=== PATIENT | male | born 1965 | race Caucasian/White ===

== ENCOUNTER 2016-06-12 14:08 | Emergency (ER) | payer OTHER ==
--- NOTE | 2016-06-12 15:30 | REP ---
Clinical: Cough . Comparison: 01/30/2014 . Technique: PA and lateral. Findings: The mediastinum and cardiac silhouette are normal. The lung rob are clear and without acute consolidation, effusion, or pneumothorax. The skeletal structures are intact and normal. Impression: 1. No acute cardiopulmonary process. Signed by Ren Serrano MD 06/12/2016 03:21 P
[2016-06-12] MEDS ORDERED: TUSSICAPS ER 10/8MG CAPSULE As Ordered ONE (15:35)
[2016-06-12] MEDS ORDERED: methylPREDNISolone INJ 125 MG/2 ML VIAL (J2930) As Ordered ONE (15:35)
[2016-06-12] MEDS ORDERED: IPRATROPIUM 0.5MG/ALBUTEROL 2.5MG INH SOL UD 3ML (DUONEB)(J7620) As Ordered ONE (15:36)
[2016-06-12 15:47] LABS: BASO % 0.7 % (0.0-1.0); EOS # 0.1 K/mm3 (0.0-0.50); EOS % 2.2 % (0.0-3.0); LARGE UNSTAINED CELL # 0.2 K/mm3 (0.0-0.4); LYMPH # 1.8 K/mm3 (1.5-4.5); MEAN CORPUSCULAR HEMOGLOBIN 30.9 pg (27.0-33.0); MEAN CORPUSCULAR HGB CONC 35.2 g/dl (32.0-36.5); MEAN CORPUSCULAR VOLUME 87.8 fl (80.0-96.0); MONO # 0.3 K/mm3 (0.0-0.8); MONO % 7.8 % (0.0-5.0); NEUTROPHILS # 1.6 K/mm3 (1.8-7.7); NEUTROPHILS % 40.3 % (36.0-66.0); PLATELET COUNT, AUTOMATED 213 k/mm3 (150-450); RED CELL DISTRIBUTION WIDTH 11.9 % (11.5-14.5)
[2016-06-12 15:48] LABS: VENOUS BASE EXCESS 2.6 (-2.0-2.0); VENOUS O2 SATURATION 56.1 % (60.0-80.0); VENOUS PARTIAL PRESSURE CO2 48.3 mmHg (38.0-50.0); VENOUS PARTIAL PRESSURE O2 28.4 mmHg (30.0-50.0); VENOUS STANDARD HCO3 25.6 MEQ/L
[2016-06-12 16:22] LABS: ANION GAP 7 MEQ/L (8-16); BLOOD UREA NITROGEN 9 MG/DL (7-18); CALCIUM LEVEL 9.3 MG/DL (8.5-10.1); CARBON DIOXIDE LEVEL 31 MEQ/L (21-32); CHLORIDE LEVEL 98 MEQ/L (98-107); GLOMERULAR FILTRATION RATE > 60.0 (>56); GLUCOSE, FASTING 116 MG/DL (70-105); POTASSIUM SERUM 4.6 MEQ/L (3.5-5.1); SODIUM LEVEL 136 MEQ/L (136-145)
--- NOTE | 2016-06-12 16:56 | EDDOCDS ---
Physician Documentation [facility] Name: Manuel Parham Age: 50 yrs Sex: Male : 1965 Arrival Date: 06/12/2016 Time: 14:08 Bed 7 Private MD: Jean Haile D Disposition: 06/12 16:51 Critical Care: Critical care not applicable. le Disposition: 06/12/16 16:46 Discharged to Home/Self Care. Impression: Acute bronchitis. - Condition is Stable. - Discharge Instructions: Acute Bronchitis. - Prescriptions for Prednisone 20 mg Oral Tablet - take 3 tablet by ORAL route once daily for 5 days; 15 tablet. Tussionex Pennkinetic ER 8- 10 mg/5 mL Oral Suspension, Sust. Release 12 hr - take 5 milliliter by ORAL route every 12 hours As needed; 120 milliliter. - Medication Reconciliation, Local Pharmacy Hours form. - Follow up: Jean Haile; When: Call to arrange an appointment; Reason: Recheck today's complaints, Continuance of care. - Problem is an ongoing problem. - Symptoms have improved. - Notes: Keep hydrated Return to the ED for worsening symptoms Historical: - Allergies: No known drug Allergies; - Home Meds: 1. cefuroxime axetil 500 mg Oral tab 1 tab every 12 hours (Last dose: 06/11/2016) 2. Theraflu Daytime Cold-Cough 10-20-650 mg oral pwpk every 4 hours as needed (Last dose: 06/12/2016 08:00) 3. omeprazole 20 mg Oral cpDR 1 cap once daily (Last dose: 06/12/2016 08:00) 4. metformin 500 mg Oral Tb24 1 tab once daily has not taken in over 1 month 5. nicotine 21 mg/24 hr TD pt24 1 patch once daily (Last dose: 06/12/2016 14:32) - PMHx: Diabetes - NIDDM: controlled; GERD; Hypercholesterolemia; Sleep Apnea w/ CPAP; - PSHx: rt arm surgery; rt ankle surgery; Hernia repair; - Social history: Smoking status: Patient uses tobacco products, heavy tobacco smoker. No barriers to communication noted, The patient speaks fluent [place]. - Family history: Not pertinent. - : The pt / caregiver states he / she is not on anticoagulants. Home medication list is obtained from the patient. - Exposure Risk Screening:: None identified. Vital Signs: 14:10 BP 189 / 105; Pulse 75; Resp 16; Temp 96.8(O); Pulse Ox 98% on R/A; Weight 86.18 kg / lr2 189.99 lbs (R); Height 5 ft. 8 in. (172.72 cm) (R); Pain 9/10; 15:06 BP 154 / 90 LA Sitting (man/); jo3 15:46 BP 140 / 72 (auto/); dsf 15:48 Pulse 76 MON; Pulse Ox 92% ; dsf 16:01 BP 138 / 76 (auto/); dsf 16:01 Pulse 74 MON; Pulse Ox 95% ; dsf 16:16 BP 140 / 76 (auto/); dsf 16:16 Pulse 74 MON; Pulse Ox 93% ; dsf 16:31 BP 144 / 83 (auto/); dsf 16:31 Pulse 74 MON; Pulse Ox 94% ; dsf 16:46 BP 161 / 82 (auto/); dsf 16:46 Pulse 82 MON; Resp 20; Pulse Ox 95% ; Pain 0/10; dsf 14:10 Body Mass Index 28.89 (86.18 kg, 172.72 cm) lr2 MDM: 14:36 Recheck B/P ordered. dt4 14:36 ECG WITH READING ER PHYS+CARDIAG ordered. EDMS 14:59 Chest, 2 View (pa\E\lat) Ordered. EDMS 15:27 Solu-MEDROL 125 mg IVP once ordered. le 15:27 -Blood Culture (Adults Only), peripheral from different site, or from device/port/PICC le etc. if present ordered. 15:27 Staffing Branch Manager/Pulse Ox/q 15 min VS ordered. le 15:27 IV Saline Lock ordered. le 15:27 Rhythm Strip to chart ordered. le 15:27 Albuterol-Ipratropium 3 ml Inhalation once ordered. le 15:27 Call Respiratory ordered. le 15:27 Chlorpheniramine-Hydrocodone Extended Release 12 hour Capsule 8 mg-10 mg 1 caps PO once le ordered. 15:28 Basic Metabolic Profile Ordered. EDMS 15:28 CBC with Diff Ordered. EDMS 15:28 Cardiac Injury Profile Ordered. EDMS 15:28 Troponin Ordered. EDMS 15:28 -Blood Culture Ordered. EDMS 15:31 Call Respiratory complete. deg 15:31 -Blood Culture (Adults Only), peripheral from different site, or from device/port/PICC deg etc. if present complete. 15:32 Venous Blood Gas (large pea green tube on ice) Ordered. EDMS 15:33 BLOOD CULTURES Ordered. EDMS 15:53 Albuterol-Ipratropium 3 ml Inhalation once ordered. ac1 16:11 CBC with Diff Reviewed. le 16:11 Venous Blood Gas (large pea green tube on ice) Reviewed. le 16:11 Chest, 2 View (pa\E\lat) Reviewed. le 16:11 Financial registration complete. kf3 16:16 [facility] Payment Agreement was scanned into [employer] and attached to record. kf3 16:44 Basic Metabolic Profile Reviewed. le 16:44 Cardiac Injury Profile Reviewed. le 16:44 Troponin Reviewed. le Administered Medications: 15:25 Drug: Albuterol-Ipratropium 3 ml [ipratropium-albuterol 0.5 mg-3 mg(2.5 mg base)/3 mL ac1 nebulization soln (3 mL)] Route: Inhalation; 15:30 Follow up: SURYA THOMAS BEFORE AND AFTER TX. ac1 15:40 Drug: Solu-MEDROL 125 mg [Solu-Medrol 500 mg intravenous solution (125 mg)] Route: IVP; dsf Site: right antecubital; 15:40 Drug: Chlorpheniramine-Hydrocodone 1 caps [hydrocodone ER 10 mg-chlorpheniramine 8 mg dsf 12hr capsule,extend.release (1 caps)] Route: PO; Signatures: Dispatcher [employer] EDMS Indy Magana, Justice Court Judge Unit deg Mimi Gonzalez, RN RN Vilma Almeida,RT RT ac1 Mercedez Ramírez, LAND INSPECTOR LAND INSPECTOR le Vadim Byrd, Reg Reg kf3 Zeynep Scott,RN RN dsf Yeni Barker, DC IRWIN dt4 The chart was reviewed and I authenticate all verbal orders and agree with the evaluation and treatment provided.Attachments: 16:16 [facility] Payment Agreement kf3 MTDD
--- NOTE | 2016-06-12 16:56 | EDDOCDS ---
Nurse's Notes [facility] Name: Manuel Parham Age: 50 yrs Sex: Male : 1965 Arrival Date: 06/12/2016 Time: 14:08 Bed 7 Private MD: Jean Haile D Diagnosis: Acute bronchitis Presentation: 06/12 14:25 Presenting complaint: Patient states: Sent from [facility] cough x 1 week CXR r/o pneumonia, kpj also having chest pain and tingling left arm. Adult Sepsis Screening: The patient does not have new or worsening altered mentation. Patient's respiratory rate is less than 22. Systolic blood pressure is greater than 100. Patient has a qSOFA score of 0- Negative Sepsis Screen. Suicide/Homicide risk assessment- the patient denies having any suicidal and/or homicidal ideations and does not present with any other emotional, behavioral or mental health complaints. Status: Patient is not a environmental services supervisor or dependent. Transition of care: Patient was received from [facility]. 14:25 Acuity: [facility] 14:25 Method Of Arrival: [facility] Triage Assessment: 14:32 General: Appears uncomfortable, well nourished, well groomed, Behavior is anxious, kpj appropriate for age. Pain: Location: chest, body aches, left arm Pain currently is 8 out of 10 on a pain scale. Pt Declines HIV testing. Neurological: Level of Consciousness is awake, alert, Oriented to person, place, time. Respiratory: Onset: The symptoms/episode began/occurred 1 week ago, Reports shortness of breath cough that is non-productive, pain with cough. Derm: Skin is pink, warm & dry. Historical: - Allergies: No known drug Allergies; - Home Meds: 1. cefuroxime axetil 500 mg Oral tab 1 tab every 12 hours (Last dose: 06/11/2016) 2. Theraflu Daytime Cold-Cough 10-20-650 mg oral pwpk every 4 hours as needed (Last dose: 06/12/2016 08:00) 3. omeprazole 20 mg Oral cpDR 1 cap once daily (Last dose: 06/12/2016 08:00) 4. metformin 500 mg Oral Tb24 1 tab once daily has not taken in over 1 month 5. nicotine 21 mg/24 hr TD pt24 1 patch once daily (Last dose: 06/12/2016 14:32) - PMHx: Diabetes - NIDDM: controlled; GERD; Hypercholesterolemia; Sleep Apnea w/ CPAP; - PSHx: rt arm surgery; rt ankle surgery; Hernia repair; - Social history: Smoking status: Patient uses tobacco products, heavy tobacco smoker. No barriers to communication noted, The patient speaks fluent [place]ian. - Family history: Not pertinent. - : The pt / caregiver states he / she is not on anticoagulants. Home medication list is obtained from the patient. - Exposure Risk Screening:: None identified. Screenin:54 Screening information is obtained from the patient. Fall risk: No risks identified. dsf Assistance ADL's: requires no assistance with activities of daily living. Abuse/DV Screen: The patient / caregiver reports he/she is: not in a situation that causes fear, pain or injury. Nutritional screening: No deficits noted. Advance Directives: Currently, there is no health care proxy. home support is adequate. Assessment: 15:06 General: Appears in no apparent distress, Behavior is appropriate for age, cooperative. jo3 General: Taken to CT at this time . Neurological: Level of Consciousness is awake, alert, Oriented to person, place, time. Respiratory: Airway is patent Respiratory effort is even, unlabored. Derm: Skin is pink, warm & dry. 15:49 General: Appears in no apparent distress, Behavior is appropriate for age, cooperative, jo3 pleasant. Neurological: Level of Consciousness is awake, alert, Oriented to person, place, time. Respiratory: Airway is patent Respiratory effort is even, unlabored, Breath sounds are clear bilaterally. Derm: Skin is pink, warm & dry. 16:53 General: Appears in no apparent distress, Behavior is appropriate for age, cooperative. dsf Pain: Denies pain. Neurological: Level of Consciousness is awake, alert. Cardiovascular: Capillary refill < 3 seconds. Respiratory: Airway is patent Respiratory effort is even, unlabored, Respiratory pattern is regular, symmetrical. Derm: Skin is pink, warm & dry. Vital Signs: 14:10 BP 189 / 105; Pulse 75; Resp 16; Temp 96.8(O); Pulse Ox 98% on R/A; Weight 86.18 kg lr2 (R); Height 5 ft. 8 in. (172.72 cm) (R); Pain 9/10; 15:06 BP 154 / 90 LA Sitting (man/); jo3 15:46 BP 140 / 72 (auto/); dsf 15:48 Pulse 76 MON; Pulse Ox 92% ; dsf 16:01 BP 138 / 76 (auto/); dsf 16:01 Pulse 74 MON; Pulse Ox 95% ; dsf 16:16 BP 140 / 76 (auto/); dsf 16:16 Pulse 74 MON; Pulse Ox 93% ; dsf 16:31 BP 144 / 83 (auto/); dsf 16:31 Pulse 74 MON; Pulse Ox 94% ; dsf 16:46 BP 161 / 82 (auto/); dsf 16:46 Pulse 82 MON; Resp 20; Pulse Ox 95% ; Pain 0/10; dsf 14:10 Body Mass Index 28.89 (86.18 kg, 172.72 cm) lr2 Vitals: 14:10 Log In Time: June 12, 2016 at 14:08. lr2 ED Course: 14:10 Patient visited by Yessica Huber. lr2 14:10 Patient moved to Waiting lr2 14:13 Jean Haile is Private Physician. lr2 14:13 Patient moved to Pre RCE lr2 14:27 Triage Initiated kpj 14:35 Patient moved to Triage 3 kp 14:46 EKG done. (by ED staff). Reviewed by Mercedez TAYLOR. rs6 14:47 Patient moved to 7 srm 14:49 Mercedez Ramírez FNP is PHCP. le 14:53 Patient visited by Michelle Solis PCA. rs6 14:57 Patient visited by Mercedez Ramírez FNP. le 14:58 Patient visited by Mercedez Ramírez FNP. le 15:07 Patient visited by Abigail Cornelius RN. jo3 15:43 BLOOD CULTURES Sent. jo3 15:43 Venous Blood Gas (large pea green tube on ice) Sent. jo3 15:43 -Blood Culture Sent. jo3 15:43 Basic Metabolic Profile Sent. jo3 15:43 CBC with Diff Sent. jo3 15:44 Cardiac Injury Profile Sent. jo3 15:44 Troponin Sent. jo3 15:51 Chest, 2 View (pa\E\lat) Returned. EDMS 15:52 Patient visited by Abigail Cornelius,ARCHIE. jo3 16:16 [facility] Payment Agreement was scanned into [employer] and attached to record. kf3 16:46 Jean Haile is Referral Physician. le 16:53 Discontinued lock intact, bleeding controlled, pressure dressing applied, No dsf redness/swelling at site. No procedures done that require assistance. 16:54 The patient / caregiver is instructed regarding the plan of care and ED course. dsf Administered Medications: 15:25 Drug: Albuterol-Ipratropium 3 ml [ipratropium-albuterol 0.5 mg-3 mg(2.5 mg base)/3 mL ac1 nebulization soln (3 mL)] Route: Inhalation; 15:30 Follow up: SURYA THOMAS BEFORE AND AFTER TX. ac1 15:40 Drug: Solu-MEDROL 125 mg [Solu-Medrol 500 mg intravenous solution (125 mg)] Route: IVP; dsf Site: right antecubital; 15:40 Drug: Chlorpheniramine-Hydrocodone 1 caps [hydrocodone ER 10 mg-chlorpheniramine 8 mg dsf 12hr capsule,extend.release (1 caps)] Route: PO; Intake: RT: 15:25 Initial Med Neb Given as ordered. ac1 15:30 Respiratory: Breath sounds with wheezes bilaterally. at expiration. ac1 Order Results: Lab Order: Basic Metabolic Profile; SPEC'M 06/12/16 15:40 Test: GLUCOSE, FASTING; Value: 116; Range: 70-105; Abnormal: Above high normal; Units: MG/DL; Status: F Test: BLOOD UREA NITROGEN; Value: 9; Range: 7-18; Units: MG/DL; Status: F Test: CREATININE FOR GFR; Value: 1.00; Range: 0.70-1.30; Units: MG/DL; Status: F Test: GLOMERULAR FILTRATION RATE; Value: > 60.0; Range: >56; Status: F Test: SODIUM LEVEL; Value: 136; Range: 136-145; Units: MEQ/L; Status: F Test: POTASSIUM SERUM; Value: 4.6; Range: 3.5-5.1; Units: MEQ/L; Status: F Test: CHLORIDE LEVEL; Value: 98; Range: 98-107; Units: MEQ/L; Status: F Test: CARBON DIOXIDE LEVEL; Value: 31; Range: 21-32; Units: MEQ/L; Status: F Test: ANION GAP; Value: 7; Range: 8-16; Abnormal: Below low normal; Units: MEQ/L; Status: F Test: CALCIUM LEVEL; Value: 9.3; Range: 8.5-10.1; Units: MG/DL; Status: F Test Note: ; Units are mL/min/1.73 m2 Chronic Kidney Disease Staging per NKF: Stage I & II GFR >=60 Normal to Mildly Decreased Stage III GFR 30-59 Moderately Decreased Stage IV GFR 15-29 Severely Decreased Stage V GFR <15 Very Little GFR Left ESRD GFR <15 on STUNT MAN Lab Order: CBC with Diff; SPEC'M 06/12/16 15:40 Test: WHITE BLOOD COUNT; Value: 4.0; Range: 4.0-10.0; Units: K/mm3; Status: F Test: RED BLOOD COUNT; Value: 4.96; Range: 4.30-6.10; Units: M/mm3; Status: F Test: HEMOGLOBIN; Value: 15.3; Range: 14.0-18.0; Units: g/dl; Status: F Test: HEMATOCRIT; Value: 43.6; Range: 42.0-52.0; Units: %; Status: F Test: MEAN CORPUSCULAR VOLUME; Value: 87.8; Range: 80.0-96.0; Units: fl; Status: F Test: MEAN CORPUSCULAR HEMOGLOBIN; Value: 30.9; Range: 27.0-33.0; Units: pg; Status: F Test: MEAN CORPUSCULAR HGB CONC; Value: 35.2; Range: 32.0-36.5; Units: g/dl; Status: F Test: RED CELL DISTRIBUTION WIDTH; Value: 11.9; Range: 11.5-14.5; Units: %; Status: F Test: PLATELET COUNT, AUTOMATED; Value: 213; Range: 150-450; Units: k/mm3; Status: F Test: NEUTROPHILS %; Value: 40.3; Range: 36.0-66.0; Units: %; Status: F Test: LYMPH %; Value: 44.0; Range: 24.0-44.0; Units: %; Status: F Test: MONO %; Value: 7.8; Range: 0.0-5.0; Abnormal: Above high normal; Units: %; Status: F Test: EOS %; Value: 2.2; Range: 0.0-3.0; Units: %; Status: F Test: BASO %; Value: 0.7; Range: 0.0-1.0; Units: %; Status: F Test: LARGE UNSTAINED CELL %; Value: 5.0; Range: 0.0-4.0; Abnormal: Above high normal; Units: %; Status: F Test: NEUTROPHILS #; Value: 1.6; Range: 1.8-7.7; Abnormal: Below low normal; Units: K/mm3; Status: F Test: LYMPH #; Value: 1.8; Range: 1.5-4.5; Units: K/mm3; Status: F Test: MONO #; Value: 0.3; Range: 0.0-0.8; Units: K/mm3; Status: F Test: EOS #; Value: 0.1; Range: 0.0-0.50; Units: K/mm3; Status: F Test: BASO #; Value: 0.0; Range: 0.0-0.2; Units: K/mm3; Status: F Test: LARGE UNSTAINED CELL #; Value: 0.2; Range: 0.0-0.4; Units: K/mm3; Status: F Lab Order: Cardiac Injury Profile; SPEC' 06/12/16 15:40 Test: CPK CREATINE PHOSPHOKINASE; Value: 123; Range: 39-308; Units: U/L; Status: F Test: CK-MB VALUE MASS; Value: 1.0; Range: 0.0-3.6; Units: NG/ML; Status: F Test: MB/CK RELATIVE INDEX; Value: 0.81; Range: < OR =4; Status: F Test Note: ; DIAGNOSIS CRITERIA MMB ng/ml Relative Index (RI) NON-AMI < or = 5 N/A [place] > 5 < or = 4 AMI > 5 > 4 Lab Order: Troponin; SPEC'M 06/12/16 15:40 Test: TROPONIN I; Value: < 0.02; Range: < 0.10; Units: NG/ML; Status: F Test Note: ; Troponin I Reference Interval for [employer] LOCI: 99th Percentile= 0.00-0.045 ng/ml Risk Stratification: <= 0.10 ng/ml Decreased Risk for Adverse Clinical Events. 0.10-1.50 ng/ml Increased Risk for Adverse Clinical Events. Evaluation of additional criterion and/or repeat testing in 2-6 hours is suggested to rule out myocardial damage. >= 1.50 ng/ml Indicative of Myocardial Injury. Lab Order: Venous Blood Gas (large pea green tube on ice); SPEC'M 06/12/16 15:40 Test: VENOUS PH; Value: 7.389; Range: 7.330-7.430; Units: UNITS; Status: F Test: VENOUS PARTIAL PRESSURE CO2; Value: 48.3; Range: 38.0-50.0; Units: mmHg; Status: F Test: VENOUS PARTIAL PRESSURE O2; Value: 28.4; Range: 30.0-50.0; Abnormal: Below low normal; Units: mmHg; Status: F Test: VENOUS TOTAL CO2; Value: 30.0; Range: 24.0-28.0; Abnormal: Above high normal; Units: MEQ/L; Status: F Test: VENOUS HCO3; Value: 28.5; Range: 23.0-27.0; Abnormal: Above high normal; Units: MEQ/L; Status: F Test: VENOUS BASE EXCESS; Value: 2.6; Range: -2.0-2.0; Abnormal: Above high normal; Status: F Test: VENOUS STANDARD HCO3; Value: 25.6; Units: MEQ/L; Status: F Test: VENOUS O2 SATURATION; Value: 56.1; Range: 60.0-80.0; Abnormal: Below low normal; Units: %; Status: F Radiology Order: Chest, 2 View (pa\E\lat) Test: Chest, 2 View (pa\E\lat) REASON FOR EXAMINATION: Cough; Clinical: Cough .; ; Comparison: 01/30/2014 .; ; Technique: PA and lateral.; ; Findings:; The mediastinum and cardiac silhouette are normal. The lung rob are clear and; without acute consolidation, effusion, or pneumothorax. The skeletal structures; are intact and normal.; ; Impression:; 1. No acute cardiopulmonary process.; ; ; Signed by; Ren Serrano MD 06/12/2016 03:21 P; Outcome: 16:46 Discharge ordered by Provider. le 16:54 Discharge Assessment: Patient awake, alert and oriented x 3. No cognitive and/or dsf functional deficits noted. Patient verbalized understanding of disposition instructions. patient administered narcotics - no. The following High Risk Discharge criteria are identified: None. Discharged to home ambulatory. Condition: stable. Discharge instructions given to patient, Instructed on discharge instructions, follow up and referral plans. medication usage, Demonstrated understanding of instructions, medications, Pt was receptive of discharge instructions/ teaching. Prescriptions given X 2. No special radiology studies were completed. Property sent home with patient. 16:55 Patient left the ED. dsf Signatures: Dispatcher [employer] EDMS Mimi Gonzalez, RN RN Carolyn Soria, RN RN Vilma Messina,RT RT ac1 Abigail CorneliusRN RN jo3 Mercedez Ramírez, CHIMNEY SUPERVISOR BRICK CHIMNEY SUPERVISOR BRICK Vadim Wheat, Reg Reg kf3 Zeynep Scott RN RN dsf Michelle Solis, RN PLASTIC SURGERY RN PLASTIC SURGERY rs6 Yessica Huber lr2 Corrections: (The following items were deleted from the chart) 14:53 14:46 EKG done. (by ED staff). Reviewed by Yeni Barker PA-C rs6 rs6 15:40 15:40 Solu-MEDROL 125 mg IVP in left antecubital dsf dsf 15:53 15:53 Albuterol-Ipratropium 3 ml Inhalation ac1 ac1 MTDD
--- NOTE | 2016-06-13 15:15 | ECGEPIP ---
Stationary ECG Study [facility] - ED Test Date: 2016-06-12 Pat Name: ANDRESSA BUTTS Department: Room: - Gender: M Public Relations Representative: : 1965 Requested By: KELLY Dotson PA-C Order Number: [id number] Reading MD: Evon Renner Measurements Intervals [place] Rate: 67 P: 71 WV: 150 QRS: 37 QRSD: 98 T: 39 QT: 370 QTc: 393 Interpretive Statements SINUS RHYTHM NO PRIOR FOR COMPARISON Electronically Signed On 06-13-2016 15:15:20 EST by Evon Renner
--- NOTE | 2016-06-14 17:56 | EDDOCDS ---
Physician Documentation [facility] Name: Manuel Parham Age: 50 yrs Sex: Male : 1965 Arrival Date: 06/12/2016 Time: 14:08 Bed 7 Private MD: Jean Haile D Disposition: 06/12 16:51 Critical Care: Critical care not applicable. le Disposition: 06/12/16 16:46 Discharged to Home/Self Care. Impression: Acute bronchitis. - Condition is Stable. - Discharge Instructions: Acute Bronchitis. - Prescriptions for Prednisone 20 mg Oral Tablet - take 3 tablet by ORAL route once daily for 5 days; 15 tablet. Tussionex Pennkinetic ER 8- 10 mg/5 mL Oral Suspension, Sust. Release 12 hr - take 5 milliliter by ORAL route every 12 hours As needed; 120 milliliter. - Medication Reconciliation, Local Pharmacy Hours form. - Follow up: Jean Haile; When: Call to arrange an appointment; Reason: Recheck today's complaints, Continuance of care. - Problem is an ongoing problem. - Symptoms have improved. - Notes: Keep hydrated Return to the ED for worsening symptoms Historical: - Allergies: No known drug Allergies; - Home Meds: 1. cefuroxime axetil 500 mg Oral tab 1 tab every 12 hours (Last dose: 06/11/2016) 2. Theraflu Daytime Cold-Cough 10-20-650 mg oral pwpk every 4 hours as needed (Last dose: 06/12/2016 08:00) 3. omeprazole 20 mg Oral cpDR 1 cap once daily (Last dose: 06/12/2016 08:00) 4. metformin 500 mg Oral Tb24 1 tab once daily has not taken in over 1 month 5. nicotine 21 mg/24 hr TD pt24 1 patch once daily (Last dose: 06/12/2016 14:32) - PMHx: Diabetes - NIDDM: controlled; GERD; Hypercholesterolemia; Sleep Apnea w/ CPAP; - PSHx: rt arm surgery; rt ankle surgery; Hernia repair; - Social history: Smoking status: Patient uses tobacco products, heavy tobacco smoker. No barriers to communication noted, The patient speaks fluent Austrian. - Family history: Not pertinent. - : The pt / caregiver states he / she is not on anticoagulants. Home medication list is obtained from the patient. - Exposure Risk Screening:: None identified. Vital Signs: 14:10 BP 189 / 105; Pulse 75; Resp 16; Temp 96.8(O); Pulse Ox 98% on R/A; Weight 86.18 kg / lr2 189.99 lbs (R); Height 5 ft. 8 in. (172.72 cm) (R); Pain 9/10; 15:06 BP 154 / 90 LA Sitting (man/); jo3 15:46 BP 140 / 72 (auto/); dsf 15:48 Pulse 76 MON; Pulse Ox 92% ; dsf 16:01 BP 138 / 76 (auto/); dsf 16:01 Pulse 74 MON; Pulse Ox 95% ; dsf 16:16 BP 140 / 76 (auto/); dsf 16:16 Pulse 74 MON; Pulse Ox 93% ; dsf 16:31 BP 144 / 83 (auto/); dsf 16:31 Pulse 74 MON; Pulse Ox 94% ; dsf 16:46 BP 161 / 82 (auto/); dsf 16:46 Pulse 82 MON; Resp 20; Pulse Ox 95% ; Pain 0/10; dsf 14:10 Body Mass Index 28.89 (86.18 kg, 172.72 cm) lr2 MDM: 14:36 Recheck B/P ordered. dt4 14:36 ECG WITH READING ER PHYS+CARDIAG ordered. EDMS 14:59 Chest, 2 View (pa\E\lat) Ordered. EDMS 15:27 Solu-MEDROL 125 mg IVP once ordered. le 15:27 -Blood Culture (Adults Only), peripheral from different site, or from device/port/PICC le etc. if present ordered. 15:27 Refueling Ramp Attendant/Pulse Ox/q 15 min VS ordered. le 15:27 IV Saline Lock ordered. le 15:27 Rhythm Strip to chart ordered. le 15:27 Albuterol-Ipratropium 3 ml Inhalation once ordered. le 15:27 Call Respiratory ordered. le 15:27 Chlorpheniramine-Hydrocodone Extended Release 12 hour Capsule 8 mg-10 mg 1 caps PO once le ordered. 15:28 Basic Metabolic Profile Ordered. EDMS 15:28 CBC with Diff Ordered. EDMS 15:28 Cardiac Injury Profile Ordered. EDMS 15:28 Troponin Ordered. EDMS 15:28 -Blood Culture Ordered. EDMS 15:31 Call Respiratory complete. deg 15:31 -Blood Culture (Adults Only), peripheral from different site, or from device/port/PICC deg etc. if present complete. 15:32 Venous Blood Gas (large pea green tube on ice) Ordered. EDMS 15:33 BLOOD CULTURES Ordered. EDMS 15:53 Albuterol-Ipratropium 3 ml Inhalation once ordered. ac1 16:11 CBC with Diff Reviewed. le 16:11 Venous Blood Gas (large pea green tube on ice) Reviewed. le 16:11 Chest, 2 View (pa\E\lat) Reviewed. le 16:11 Financial registration complete. kf3 16:16 [facility] Payment Agreement was scanned into [employer] and attached to record. kf3 16:44 Basic Metabolic Profile Reviewed. le 16:44 Cardiac Injury Profile Reviewed. le 16:44 Troponin Reviewed. le 06/13 20:04 T-Sheet-- Draft Copy was scanned into [employer] and attached to record. klr 21:36 ECG/EKG was scanned into [employer] and attached to record. klr Administered Medications: 06/12 15:25 Drug: Albuterol-Ipratropium 3 ml [ipratropium-albuterol 0.5 mg-3 mg(2.5 mg base)/3 mL ac1 nebulization soln (3 mL)] Route: Inhalation; 15:30 Follow up: SURYA THOMAS BEFORE AND AFTER TX. ac1 15:40 Drug: Solu-MEDROL 125 mg [Solu-Medrol 500 mg intravenous solution (125 mg)] Route: IVP; dsf Site: right antecubital; 15:40 Drug: Chlorpheniramine-Hydrocodone 1 caps [hydrocodone ER 10 mg-chlorpheniramine 8 mg dsf 12hr capsule,extend.release (1 caps)] Route: PO; Signatures: Dispatcher [employer] EDMS Indy Magana, Ground Defence Officer Unit deg Mimi Gonzalez RN RN kpj Cowles, Amy,RT RT ac1 Mercedez Ramírez, HOME HEALTH BILLING SPECIALIST HOME HEALTH BILLING SPECIALIST Vadim Wheat, Reg Reg kf3 Zeynep Scott RN RN dsf Yeni Barker, PAMary Beth PA-C Gail Irwin klr The chart was reviewed and I authenticate all verbal orders and agree with the evaluation and treatment provided.Attachments: 16:16 [facility] Payment Agreement kf3 06/13 20:04 T-Sheet-- Draft Copy klr 21:36 ECG/EKG klr Chart Complete MTDD
--- NOTE | 2016-06-14 17:57 | EDDOCDS ---
Nurse's Notes [facility] Name: Manuel Butts Age: 50 yrs Sex: Male : 1965 Arrival Date: 06/12/2016 Time: 14:08 Bed 7 Private MD: Jean Haile D Diagnosis: Acute bronchitis Presentation: 06/12 14:25 Presenting complaint: Patient states: Sent from [facility] cough x 1 week CXR r/o pneumonia, kpj also having chest pain and tingling left arm. Adult Sepsis Screening: The patient does not have new or worsening altered mentation. Patient's respiratory rate is less than 22. Systolic blood pressure is greater than 100. Patient has a qSOFA score of 0- Negative Sepsis Screen. Suicide/Homicide risk assessment- the patient denies having any suicidal and/or homicidal ideations and does not present with any other emotional, behavioral or mental health complaints. Status: Patient is not a family services assistant or dependent. Transition of care: Patient was received from [facility]. 14:25 Acuity: ARIA Level 3 [facility] 14:25 Method Of Arrival: Walkin/Carried/Asstd [facility] Triage Assessment: 14:32 General: Appears uncomfortable, well nourished, well groomed, Behavior is anxious, kpj appropriate for age. Pain: Location: chest, body aches, left arm Pain currently is 8 out of 10 on a pain scale. Pt Declines HIV testing. Neurological: Level of Consciousness is awake, alert, Oriented to person, place, time. Respiratory: Onset: The symptoms/episode began/occurred 1 week ago, Reports shortness of breath cough that is non-productive, pain with cough. Derm: Skin is pink, warm & dry. Historical: - Allergies: No known drug Allergies; - Home Meds: 1. cefuroxime axetil 500 mg Oral tab 1 tab every 12 hours (Last dose: 06/11/2016) 2. Theraflu Daytime Cold-Cough 10-20-650 mg oral pwpk every 4 hours as needed (Last dose: 06/12/2016 08:00) 3. omeprazole 20 mg Oral cpDR 1 cap once daily (Last dose: 06/12/2016 08:00) 4. metformin 500 mg Oral Tb24 1 tab once daily has not taken in over 1 month 5. nicotine 21 mg/24 hr TD pt24 1 patch once daily (Last dose: 06/12/2016 14:32) - PMHx: Diabetes - NIDDM: controlled; GERD; Hypercholesterolemia; Sleep Apnea w/ CPAP; - PSHx: rt arm surgery; rt ankle surgery; Hernia repair; - Social history: Smoking status: Patient uses tobacco products, heavy tobacco smoker. No barriers to communication noted, The patient speaks fluent Tongan. - Family history: Not pertinent. - : The pt / caregiver states he / she is not on anticoagulants. Home medication list is obtained from the patient. - Exposure Risk Screening:: None identified. Screenin:54 Screening information is obtained from the patient. Fall risk: No risks identified. dsf Assistance ADL's: requires no assistance with activities of daily living. Abuse/DV Screen: The patient / caregiver reports he/she is: not in a situation that causes fear, pain or injury. Nutritional screening: No deficits noted. Advance Directives: Currently, there is no health care proxy. home support is adequate. Assessment: 15:06 General: Appears in no apparent distress, Behavior is appropriate for age, cooperative. jo3 General: Taken to CT at this time . Neurological: Level of Consciousness is awake, alert, Oriented to person, place, time. Respiratory: Airway is patent Respiratory effort is even, unlabored. Derm: Skin is pink, warm & dry. 15:49 General: Appears in no apparent distress, Behavior is appropriate for age, cooperative, jo3 pleasant. Neurological: Level of Consciousness is awake, alert, Oriented to person, place, time. Respiratory: Airway is patent Respiratory effort is even, unlabored, Breath sounds are clear bilaterally. Derm: Skin is pink, warm & dry. 16:53 General: Appears in no apparent distress, Behavior is appropriate for age, cooperative. dsf Pain: Denies pain. Neurological: Level of Consciousness is awake, alert. Cardiovascular: Capillary refill < 3 seconds. Respiratory: Airway is patent Respiratory effort is even, unlabored, Respiratory pattern is regular, symmetrical. Derm: Skin is pink, warm & dry. Vital Signs: 14:10 BP 189 / 105; Pulse 75; Resp 16; Temp 96.8(O); Pulse Ox 98% on R/A; Weight 86.18 kg lr2 (R); Height 5 ft. 8 in. (172.72 cm) (R); Pain 9/10; 15:06 BP 154 / 90 LA Sitting (man/); jo3 15:46 BP 140 / 72 (auto/); dsf 15:48 Pulse 76 MON; Pulse Ox 92% ; dsf 16:01 BP 138 / 76 (auto/); dsf 16:01 Pulse 74 MON; Pulse Ox 95% ; dsf 16:16 BP 140 / 76 (auto/); dsf 16:16 Pulse 74 MON; Pulse Ox 93% ; dsf 16:31 BP 144 / 83 (auto/); dsf 16:31 Pulse 74 MON; Pulse Ox 94% ; dsf 16:46 BP 161 / 82 (auto/); dsf 16:46 Pulse 82 MON; Resp 20; Pulse Ox 95% ; Pain 0/10; dsf 14:10 Body Mass Index 28.89 (86.18 kg, 172.72 cm) lr2 Vitals: 14:10 Log In Time: June 12, 2016 at 14:08. lr2 ED Course: 14:10 Patient visited by Yessica Huber. lr2 14:10 Patient moved to Waiting lr2 14:13 Jean Haile is Private Physician. lr2 14:13 Patient moved to Pre RCE lr2 14:27 Triage Initiated kpj 14:35 Patient moved to Triage 3 kp 14:46 EKG done. (by ED staff). Reviewed by Mercedez TAYLOR. rs6 14:47 Patient moved to 7 srm 14:49 Mercedez Ramírez FNP is PHCP. le 14:53 Patient visited by Michelle Solis PCA. rs6 14:57 Patient visited by Mercedez Ramírez FNP. le 14:58 Patient visited by Mercedez Ramírez FNP. le 15:07 Patient visited by Abigail Cornelius RN. jo3 15:43 BLOOD CULTURES Sent. jo3 15:43 Venous Blood Gas (large pea green tube on ice) Sent. jo3 15:43 -Blood Culture Sent. jo3 15:43 Basic Metabolic Profile Sent. jo3 15:43 CBC with Diff Sent. jo3 15:44 Cardiac Injury Profile Sent. jo3 15:44 Troponin Sent. jo3 15:51 Chest, 2 View (pa\E\lat) Returned. EDMS 15:52 Patient visited by Abigail Cornelius,ARCHIE. jo3 16:16 [facility] Payment Agreement was scanned into [employer] and attached to record. kf3 16:46 Jean Haile is Referral Physician. le 16:53 Discontinued lock intact, bleeding controlled, pressure dressing applied, No dsf redness/swelling at site. No procedures done that require assistance. 16:54 The patient / caregiver is instructed regarding the plan of care and ED course. dsf 06/13 16:07 EKG-ADULT Returned. EDMS 20:04 T-Sheet-- Draft Copy was scanned into [employer] and attached to record. klr 21:36 ECG/EKG was scanned into [employer] and attached to record. klr Administered Medications: 06/12 15:25 Drug: Albuterol-Ipratropium 3 ml [ipratropium-albuterol 0.5 mg-3 mg(2.5 mg base)/3 mL ac1 nebulization soln (3 mL)] Route: Inhalation; 15:30 Follow up: SURYA THOMAS BEFORE AND AFTER TX. ac1 15:40 Drug: Solu-MEDROL 125 mg [Solu-Medrol 500 mg intravenous solution (125 mg)] Route: IVP; dsf Site: right antecubital; 15:40 Drug: Chlorpheniramine-Hydrocodone 1 caps [hydrocodone ER 10 mg-chlorpheniramine 8 mg dsf 12hr capsule,extend.release (1 caps)] Route: PO; Intake: RT: 15:25 Initial Med Neb Given as ordered. ac1 15:30 Respiratory: Breath sounds with wheezes bilaterally. at expiration. ac1 Order Results: Lab Order: -Blood Culture; SPEC'M 06/12/16 16:01 Test: BLOOD CULTURE; Value: No growth after 24 hours . All specimens observed; Status: F Test: BLOOD CULTURE; Value: for 5 days. Results final at that time.; Status: F Test: BLOOD CULTURE; Value: No Growth after 48 hours. All Specimens observed; Status: F Test: BLOOD CULTURE; Value: for 7 days. Results final at that time.; Status: F Lab Order: Basic Metabolic Profile; SPEC'M 06/12/16 15:40 Test: GLUCOSE, FASTING; Value: 116; Range: 70-105; Abnormal: Above high normal; Units: MG/DL; Status: F Test: BLOOD UREA NITROGEN; Value: 9; Range: 7-18; Units: MG/DL; Status: F Test: CREATININE FOR GFR; Value: 1.00; Range: 0.70-1.30; Units: MG/DL; Status: F Test: GLOMERULAR FILTRATION RATE; Value: > 60.0; Range: >56; Status: F Test: SODIUM LEVEL; Value: 136; Range: 136-145; Units: MEQ/L; Status: F Test: POTASSIUM SERUM; Value: 4.6; Range: 3.5-5.1; Units: MEQ/L; Status: F Test: CHLORIDE LEVEL; Value: 98; Range: 98-107; Units: MEQ/L; Status: F Test: CARBON DIOXIDE LEVEL; Value: 31; Range: 21-32; Units: MEQ/L; Status: F Test: ANION GAP; Value: 7; Range: 8-16; Abnormal: Below low normal; Units: MEQ/L; Status: F Test: CALCIUM LEVEL; Value: 9.3; Range: 8.5-10.1; Units: MG/DL; Status: F Test Note: ; Units are mL/min/1.73 m2 Chronic Kidney Disease Staging per NKF: Stage I & II GFR >=60 Normal to Mildly Decreased Stage III GFR 30-59 Moderately Decreased Stage IV GFR 15-29 Severely Decreased Stage V GFR <15 Very Little GFR Left ESRD GFR <15 on DIRECTOR OF STRATEGIC SOURCING Lab Order: CBC with Diff; SPEC'M 06/12/16 15:40 Test: WHITE BLOOD COUNT; Value: 4.0; Range: 4.0-10.0; Units: K/mm3; Status: F Test: RED BLOOD COUNT; Value: 4.96; Range: 4.30-6.10; Units: M/mm3; Status: F Test: HEMOGLOBIN; Value: 15.3; Range: 14.0-18.0; Units: g/dl; Status: F Test: HEMATOCRIT; Value: 43.6; Range: 42.0-52.0; Units: %; Status: F Test: MEAN CORPUSCULAR VOLUME; Value: 87.8; Range: 80.0-96.0; Units: fl; Status: F Test: MEAN CORPUSCULAR HEMOGLOBIN; Value: 30.9; Range: 27.0-33.0; Units: pg; Status: F Test: MEAN CORPUSCULAR HGB CONC; Value: 35.2; Range: 32.0-36.5; Units: g/dl; Status: F Test: RED CELL DISTRIBUTION WIDTH; Value: 11.9; Range: 11.5-14.5; Units: %; Status: F Test: PLATELET COUNT, AUTOMATED; Value: 213; Range: 150-450; Units: k/mm3; Status: F Test: NEUTROPHILS %; Value: 40.3; Range: 36.0-66.0; Units: %; Status: F Test: LYMPH %; Value: 44.0; Range: 24.0-44.0; Units: %; Status: F Test: MONO %; Value: 7.8; Range: 0.0-5.0; Abnormal: Above high normal; Units: %; Status: F Test: EOS %; Value: 2.2; Range: 0.0-3.0; Units: %; Status: F Test: BASO %; Value: 0.7; Range: 0.0-1.0; Units: %; Status: F Test: LARGE UNSTAINED CELL %; Value: 5.0; Range: 0.0-4.0; Abnormal: Above high normal; Units: %; Status: F Test: NEUTROPHILS #; Value: 1.6; Range: 1.8-7.7; Abnormal: Below low normal; Units: K/mm3; Status: F Test: LYMPH #; Value: 1.8; Range: 1.5-4.5; Units: K/mm3; Status: F Test: MONO #; Value: 0.3; Range: 0.0-0.8; Units: K/mm3; Status: F Test: EOS #; Value: 0.1; Range: 0.0-0.50; Units: K/mm3; Status: F Test: BASO #; Value: 0.0; Range: 0.0-0.2; Units: K/mm3; Status: F Test: LARGE UNSTAINED CELL #; Value: 0.2; Range: 0.0-0.4; Units: K/mm3; Status: F Lab Order: Cardiac Injury Profile; SPEC'M 06/12/16 15:40 Test: CPK CREATINE PHOSPHOKINASE; Value: 123; Range: 39-308; Units: U/L; Status: F Test: CK-MB VALUE MASS; Value: 1.0; Range: 0.0-3.6; Units: NG/ML; Status: F Test: MB/CK RELATIVE INDEX; Value: 0.81; Range: < OR =4; Status: F Test Note: ; DIAGNOSIS CRITERIA MMB ng/ml Relative Index (RI) NON-AMI < or = 5 N/A [place] > 5 < or = 4 AMI > 5 > 4 Lab Order: Troponin; LOCATED [facility]' 06/12/16 15:40 Test: TROPONIN I; Value: < 0.02; Range: < 0.10; Units: NG/ML; Status: F Test Note: ; Troponin I Reference Interval for [facility] LOCI: 99th Percentile= 0.00-0.045 ng/ml Risk Stratification: <= 0.10 ng/ml Decreased Risk for Adverse Clinical Events. 0.10-1.50 ng/ml Increased Risk for Adverse Clinical Events. Evaluation of additional criterion and/or repeat testing in 2-6 hours is suggested to rule out myocardial damage. >= 1.50 ng/ml Indicative of Myocardial Injury. Lab Order: Venous Blood Gas (large pea green tube on ice); LOCATED [facility]' 06/12/16 15:40 Test: VENOUS PH; Value: 7.389; Range: 7.330-7.430; Units: UNITS; Status: F Test: VENOUS PARTIAL PRESSURE CO2; Value: 48.3; Range: 38.0-50.0; Units: mmHg; Status: F Test: VENOUS PARTIAL PRESSURE O2; Value: 28.4; Range: 30.0-50.0; Abnormal: Below low normal; Units: mmHg; Status: F Test: VENOUS TOTAL CO2; Value: 30.0; Range: 24.0-28.0; Abnormal: Above high normal; Units: MEQ/L; Status: F Test: VENOUS HCO3; Value: 28.5; Range: 23.0-27.0; Abnormal: Above high normal; Units: MEQ/L; Status: F Test: VENOUS BASE EXCESS; Value: 2.6; Range: -2.0-2.0; Abnormal: Above high normal; Status: F Test: VENOUS STANDARD HCO3; Value: 25.6; Units: MEQ/L; Status: F Test: VENOUS O2 SATURATION; Value: 56.1; Range: 60.0-80.0; Abnormal: Below low normal; Units: %; Status: F Lab Order: BLOOD CULTURES; SPEC'M 06/12/16 15:40 Test: BLOOD CULTURE; Value: No growth after 24 hours . All specimens observed; Status: F Test: BLOOD CULTURE; Value: for 5 days. Results final at that time.; Status: F Test: BLOOD CULTURE; Value: No Growth after 48 hours. All Specimens observed; Status: F Test: BLOOD CULTURE; Value: for 7 days. Results final at that time.; Status: F Radiology Order: EKG-ADULT Test: EKG-ADULT REASON FOR EXAMINATION: Chest Pain; Stationary ECG Study; [facility] - ED; ; Test Date: 2016-06-12; Pat Name: MANUEL BUTTS Department:; Room: -; Gender: Habilitation Assistant: ; : 1965 Requested By: YENI Dotson PA-C; Order Number: [id number] Reading MD: Evon Renner; Measurements; Intervals [place]; Rate: 67 P: 71; MN: 150 QRS: 37; QRSD: 98 T: 39; QT: 370; QTc: 393; Interpretive Statements; SINUS RHYTHM; NO PRIOR FOR COMPARISON; Electronically Signed On 06-13-2016 15:15:20 EST by Evon Renner; Radiology Order: Chest, 2 View (pa\E\lat) Test: Chest, 2 View (pa\E\lat) REASON FOR EXAMINATION: Cough; Clinical: Cough .; ; Comparison: 01/30/2014 .; ; Technique: PA and lateral.; ; Findings:; The mediastinum and cardiac silhouette are normal. The lung rob are clear and; without acute consolidation, effusion, or pneumothorax. The skeletal structures; are intact and normal.; ; Impression:; 1. No acute cardiopulmonary process.; ; ; Signed by; Ren Serrano MD 06/12/2016 03:21 P; Outcome: 16:46 Discharge ordered by Provider. le 16:54 Discharge Assessment: Patient awake, alert and oriented x 3. No cognitive and/or dsf functional deficits noted. Patient verbalized understanding of disposition instructions. patient administered narcotics - no. The following High Risk Discharge criteria are identified: None. Discharged to home ambulatory. Condition: stable. Discharge instructions given to patient, Instructed on discharge instructions, follow up and referral plans. medication usage, Demonstrated understanding of instructions, medications, Pt was receptive of discharge instructions/ teaching. Prescriptions given X 2. No special radiology studies were completed. Property sent home with patient. 16:55 Patient left the ED. dsf Signatures: Dispatcher [employer] EDMS Mimi Gonzalez, RN RN Carolyn Soria, RN RN Vilma Messina,RT RT ac1 Abigail CorneliusRN RN chris3 Mercedez Ramírez, GROUP WORK PROGRAM DIRECTOR GROUP WORK PROGRAM DIRECTOR Vadim Wheat, Reg Reg kf3 Zeynep Scott RN RN dsf Michelle Solis, RIVET TAPPING MACHINE OPERATOR RIVET TAPPING MACHINE OPERATOR rs6 Gail Coulter Laura lr2 Corrections: (The following items were deleted from the chart) 14:53 14:46 EKG done. (by ED staff). Reviewed by Yeni Barker PA-C rs6 rs6 15:40 15:40 Solu-MEDROL 125 mg IVP in left antecubital dsf dsf 15:53 15:53 Albuterol-Ipratropium 3 ml Inhalation ac1 ac1 Chart Complete MTDD
--- NOTE | 2016-06-14 17:57 | EDDOCDS ---
Physician Documentation [facility] Name: Manuel Parham Age: 50 yrs Sex: Male : 1965 Arrival Date: 06/12/2016 Time: 14:08 Bed 7 Private MD: Jean Haile D Disposition: 06/12 16:51 Critical Care: Critical care not applicable. le Disposition: 06/12/16 16:46 Discharged to Home/Self Care. Impression: Acute bronchitis. - Condition is Stable. - Discharge Instructions: Acute Bronchitis. - Prescriptions for Prednisone 20 mg Oral Tablet - take 3 tablet by ORAL route once daily for 5 days; 15 tablet. Tussionex Pennkinetic ER 8- 10 mg/5 mL Oral Suspension, Sust. Release 12 hr - take 5 milliliter by ORAL route every 12 hours As needed; 120 milliliter. - Medication Reconciliation, Local Pharmacy Hours form. - Follow up: Jean Haile; When: Call to arrange an appointment; Reason: Recheck today's complaints, Continuance of care. - Problem is an ongoing problem. - Symptoms have improved. - Notes: Keep hydrated Return to the ED for worsening symptoms Historical: - Allergies: No known drug Allergies; - Home Meds: 1. cefuroxime axetil 500 mg Oral tab 1 tab every 12 hours (Last dose: 06/11/2016) 2. Theraflu Daytime Cold-Cough 10-20-650 mg oral pwpk every 4 hours as needed (Last dose: 06/12/2016 08:00) 3. omeprazole 20 mg Oral cpDR 1 cap once daily (Last dose: 06/12/2016 08:00) 4. metformin 500 mg Oral Tb24 1 tab once daily has not taken in over 1 month 5. nicotine 21 mg/24 hr TD pt24 1 patch once daily (Last dose: 06/12/2016 14:32) - PMHx: Diabetes - NIDDM: controlled; GERD; Hypercholesterolemia; Sleep Apnea w/ CPAP; - PSHx: rt arm surgery; rt ankle surgery; Hernia repair; - Social history: Smoking status: Patient uses tobacco products, heavy tobacco smoker. No barriers to communication noted, The patient speaks fluent Vincentian. - Family history: Not pertinent. - : The pt / caregiver states he / she is not on anticoagulants. Home medication list is obtained from the patient. - Exposure Risk Screening:: None identified. Vital Signs: 14:10 BP 189 / 105; Pulse 75; Resp 16; Temp 96.8(O); Pulse Ox 98% on R/A; Weight 86.18 kg / lr2 189.99 lbs (R); Height 5 ft. 8 in. (172.72 cm) (R); Pain 9/10; 15:06 BP 154 / 90 LA Sitting (man/); jo3 15:46 BP 140 / 72 (auto/); dsf 15:48 Pulse 76 MON; Pulse Ox 92% ; dsf 16:01 BP 138 / 76 (auto/); dsf 16:01 Pulse 74 MON; Pulse Ox 95% ; dsf 16:16 BP 140 / 76 (auto/); dsf 16:16 Pulse 74 MON; Pulse Ox 93% ; dsf 16:31 BP 144 / 83 (auto/); dsf 16:31 Pulse 74 MON; Pulse Ox 94% ; dsf 16:46 BP 161 / 82 (auto/); dsf 16:46 Pulse 82 MON; Resp 20; Pulse Ox 95% ; Pain 0/10; dsf 14:10 Body Mass Index 28.89 (86.18 kg, 172.72 cm) lr2 MDM: 14:36 Recheck B/P ordered. dt4 14:36 ECG WITH READING ER PHYS+CARDIAG ordered. EDMS 14:59 Chest, 2 View (pa\E\lat) Ordered. EDMS 15:27 Solu-MEDROL 125 mg IVP once ordered. le 15:27 -Blood Culture (Adults Only), peripheral from different site, or from device/port/PICC le etc. if present ordered. 15:27 Cardiac/Vascular Sonographer/Pulse Ox/q 15 min VS ordered. le 15:27 IV Saline Lock ordered. le 15:27 Rhythm Strip to chart ordered. le 15:27 Albuterol-Ipratropium 3 ml Inhalation once ordered. le 15:27 Call Respiratory ordered. le 15:27 Chlorpheniramine-Hydrocodone Extended Release 12 hour Capsule 8 mg-10 mg 1 caps PO once le ordered. 15:28 Basic Metabolic Profile Ordered. EDMS 15:28 CBC with Diff Ordered. EDMS 15:28 Cardiac Injury Profile Ordered. EDMS 15:28 Troponin Ordered. EDMS 15:28 -Blood Culture Ordered. EDMS 15:31 Call Respiratory complete. deg 15:31 -Blood Culture (Adults Only), peripheral from different site, or from device/port/PICC deg etc. if present complete. 15:32 Venous Blood Gas (large pea green tube on ice) Ordered. EDMS 15:33 BLOOD CULTURES Ordered. EDMS 15:53 Albuterol-Ipratropium 3 ml Inhalation once ordered. ac1 16:11 CBC with Diff Reviewed. le 16:11 Venous Blood Gas (large pea green tube on ice) Reviewed. le 16:11 Chest, 2 View (pa\E\lat) Reviewed. le 16:11 Financial registration complete. kf3 16:16 [facility] Payment Agreement was scanned into [employer] and attached to record. kf3 16:44 Basic Metabolic Profile Reviewed. le 16:44 Cardiac Injury Profile Reviewed. le 16:44 Troponin Reviewed. le 06/13 20:04 T-Sheet-- Draft Copy was scanned into [employer] and attached to record. klr 21:36 ECG/EKG was scanned into [employer] and attached to record. klr Administered Medications: 06/12 15:25 Drug: Albuterol-Ipratropium 3 ml [ipratropium-albuterol 0.5 mg-3 mg(2.5 mg base)/3 mL ac1 nebulization soln (3 mL)] Route: Inhalation; 15:30 Follow up: SURYA THOMAS BEFORE AND AFTER TX. ac1 15:40 Drug: Solu-MEDROL 125 mg [Solu-Medrol 500 mg intravenous solution (125 mg)] Route: IVP; dsf Site: right antecubital; 15:40 Drug: Chlorpheniramine-Hydrocodone 1 caps [hydrocodone ER 10 mg-chlorpheniramine 8 mg dsf 12hr capsule,extend.release (1 caps)] Route: PO; Signatures: Dispatcher [employer] EDMS Indy Magana, Maid Housekeeper Unit deg Mimi Gonzalez RN RN kpj Cowles, Amy,RT RT ac1 Mercedez Ramírez, MANAGER OF FINANCE MANAGER OF FINANCE Vadim Wheat, Reg Reg kf3 Zeynep Scott RN RN dsf Yeni Barker, PAMary Beth PA-C Gail Irwin klr The chart was reviewed and I authenticate all verbal orders and agree with the evaluation and treatment provided.Attachments: 16:16 ID-[facility] Payment Agreement kf3 06/13 20:04 T-Sheet-- Draft Copy klr 21:36 ECG/EKG klr Chart Complete MTDD
== END 2016-06-12 16:55 | disposition home or self-care (01) ==
LOC: M ED 14:08
DX: J20.9 Acute bronchitis, unspecified (principal); E11.9 Type 2 diabetes mellitus without complications; K21.9 Gastro-esophageal reflux disease without esophagitis; E78.00 Pure hypercholesterolemia, unspecified; G47.30 Sleep apnea, unspecified; F17.200 Nicotine dependence, unspecified, uncomplicated; Z79.899 Other long term (current) drug therapy
CPT/HCPCS: 36600; 71020; 80048; 82550; 82553; 82803; 85025; 87040; 93005; 93041; 94640; 96374; 99284; J2930

== ENCOUNTER → 2016-12-04 | Outpatient (REF) | payer OTHER | LOC: M LAB REF 15:42 | PROVIDERS: ATTEND Internal Medicine | DX: M10.9 Gout, unspecified (principal); E78.5 Hyperlipidemia, unspecified ==

== ENCOUNTER → 2017-07-02 | Outpatient (REF) | payer OTHER ==
[2017-07-04 08:06] LABS: LDL DIRECT 53 mg/dL (0-99)
== END ==
LOC: M LAB REF 14:53
DX: E78.00 Pure hypercholesterolemia, unspecified (principal)

== ENCOUNTER → 2017-08-31 | Outpatient (REF) | payer OTHER ==
[2017-09-02 08:06] LABS: LDL DIRECT 91 mg/dL (0-99)
== END ==
LOC: M LAB REF 16:43
DX: E78.5 Hyperlipidemia, unspecified (principal)

== ENCOUNTER → 2018-03-18 | Outpatient (REF) | payer OTHER ==
[2018-03-19 11:22] LABS: HEPATITIS C VIRUS ABY INDEX 0.1 INDEX (<0.8)
[2018-03-19 11:22] LABS: HEPATITIS A ANTIBODY IGM NEGATIVE (NEGATIVE); HEPATITIS B CORE ANTIBODY IGM NEGATIVE (NEGATIVE); HEPATITIS B SURFACE ANTIGEN NEGATIVE (NEGATIVE); HIV 1&2 SCREEN CENTAUR NEGATIVE (NEGATIVE)
== END ==
LOC: M LAB REF 12:06
DX: Z11.59 Encounter for screening for other viral diseases (principal)
CPT/HCPCS: 87340

== ENCOUNTER → 2018-06-17 | Outpatient (REF) | payer OTHER ==
[2018-06-17 18:47] LABS: C REACTIVE PROTEIN QUANTITATIV 0.45 MG/DL (0.00-0.30); URIC ACID 4.8 MG/DL (3.5-7.2)
== END ==
LOC: M LAB REF 16:50
PROVIDERS: ATTEND Internal Medicine
DX: M10.9 Gout, unspecified (principal)

== ENCOUNTER → 2018-07-29 | Outpatient (REF) | payer OTHER ==
[2018-07-30 08:06] LABS: LDL DIRECT 76 mg/dL (0-99)
== END ==
LOC: M LAB REF 12:47
PROVIDERS: ATTEND Internal Medicine
DX: E78.00 Pure hypercholesterolemia, unspecified (principal)

== ENCOUNTER → 2018-11-18 | Outpatient (REF) | payer OTHER ==
[2018-11-19 09:06] LABS: LDL DIRECT < 4 mg/dL (0-99)
== END ==
LOC: M LAB REF 12:44
PROVIDERS: ATTEND Internal Medicine
DX: E78.1 Pure hyperglyceridemia (principal)

== ENCOUNTER → 2019-04-28 | Outpatient (REF) | payer OTHER ==
[2019-04-30 09:31] LABS: LDL DIRECT 67 mg/dL (0-99)
== END ==
LOC: M LAB REF 17:35
PROVIDERS: ATTEND Internal Medicine
DX: E78.1 Pure hyperglyceridemia (principal)

== ENCOUNTER 2019-06-01 11:51 | Day surgery (SDC) | payer OTHER ==
[~2019-06-01] VITALS: Ht 172.7 cm; Wt 85.3 kg
[~2019-06-01 11:51] MED LIST: ALLO10TA PO; ATOR40TA75 PO; BUPR150T3 PO; METF-791 PO; NS 1,000 ML IV ONE; OMEP10CASR PO; VENTAER INH
[2019-06-01] MEDS ORDERED: MIDAZOLAM INJ 2 MG/2 ML VIAL (J2250) As Ordered ONE (13:45)
[2019-06-01] MEDS ORDERED: fentaNYL 100 MCG/2 ML INJECTION (J3010) As Ordered ONE (13:46)
[2019-06-01] MEDS ORDERED: propofoL 200 MG/20 ML VIAL As Ordered ONE ×3 (13:47→14:00)
[2019-06-01] MEDS ORDERED: LIDOCAINE 2% INJ 100 MG/5 ML SDV (FOR ANES.) As Ordered ONE (13:47)
--- NOTE | 2019-06-01 15:47 | ROOR ---
Patient Name: Manuel Parham Procedure Date: 06/01/2019 3:23 PM Date of : 1965 Age: 53 Room: [facility] Gender: Male Note Status: Finalized Procedure: Colonoscopy Indications: High risk colon cancer surveillance: Personal history of colonic polyps Providers: Casimiro Willingham MD Referring MD: Alexia SYLVESTER MD Requesting Provider: Medicines: Monitored Anesthesia Care Complications: No immediate complications. Procedure: Pre-Anesthesia Assessment: - Prior to the procedure, a History and Physical was performed, and patient medications and allergies were reviewed. The patient is competent. The risks and benefits of the procedure and the sedation options and risks were discussed with the patient. All questions were answered and informed consent was obtained. Patient identification and proposed procedure were verified by the physician, the nurse and the anesthesiologist in the endoscopy suite. Mental Status Examination: alert and oriented. Airway Examination: normal oropharyngeal airway and neck mobility. Respiratory Examination: clear to auscultation. CV Examination: normal. Prophylactic Antibiotics: The patient does not require prophylactic antibiotics. Prior Anticoagulants: The patient has taken no previous anticoagulant or antiplatelet agents. ASA Grade Assessment: III - A patient with severe systemic disease. After reviewing the risks and benefits, the patient was deemed in satisfactory condition to undergo the procedure. The anesthesia plan was to use monitored anesthesia care (MAC). Immediately prior to administration of medications, the patient was re-assessed for adequacy to receive sedatives. The heart rate, respiratory rate, oxygen saturations, blood pressure, adequacy of pulmonary ventilation, and response to care were monitored throughout the procedure. The physical status of the patient was re-assessed after the procedure. The Colonoscope was introduced through the anus and advanced to the cecum, identified by appendiceal orifice and ileocecal valve. The colonoscopy was performed without difficulty. The patient tolerated the procedure well. The quality of the bowel preparation was adequate to identify polyps. Findings: The perianal and digital rectal examinations were normal. A few small-mouthed diverticula were found in the sigmoid colon. A diminutive polyp was found in the transverse colon. The polyp was sessile. The polyp was removed with a cold snare. Resection and retrieval were complete. Estimated blood loss was minimal. The retroflexed view of the distal rectum and anal verge was normal and showed no anal or rectal abnormalities. Impression: - Diverticulosis in the sigmoid colon. - One diminutive polyp in the transverse colon, removed with a cold snare. Resected and retrieved. - The distal rectum and anal verge are normal on retroflexion view. Recommendation: - Discharge patient to home (ambulatory). - Repeat colonoscopy in 5 years for surveillance. - Await pathology results. Casimiro Willingham MD Casimiro Willingham MD 06/01/2019 3:47:09 PM Electronically signed by Casimiro Willingham MD Number of Addenda: 0 Note Initiated On: 06/01/2019 3:23 PM Estimated Blood Loss: Estimated blood loss was minimal.
[2019-06-01 16:12] VITALS: BP 145/83
== END 2019-06-01 16:12 | disposition home or self-care (01) ==
LOC: M OPP 11:51
PROVIDERS: ATTEND Surgery
DX: Z12.11 Encounter for screening for malignant neoplasm of colon (principal); Z86.010 Personal history of colon polyps; D12.3 Benign neoplasm of transverse colon; K57.30 Diverticulosis of large intestine without perforation or abscess without bleeding; F17.210 Nicotine dependence, cigarettes, uncomplicated; G47.30 Sleep apnea, unspecified; E11.9 Type 2 diabetes mellitus without complications; K21.9 Gastro-esophageal reflux disease without esophagitis; Z79.84 Long term (current) use of oral hypoglycemic drugs; Z79.899 Other long term (current) drug therapy
CPT/HCPCS: 45385; 88305; J2250; J3010

== ENCOUNTER → 2019-08-25 | Outpatient (REF) | payer OTHER ==
[~2019-08-25] MED LIST changes: -METF-791 PO; +METF-838 PO; -NS 1,000 ML IV ONE
== END ==
LOC: M LAB REF 17:20
PROVIDERS: ATTEND Internal Medicine
DX: R00.2 Palpitations (principal); L30.9 Dermatitis, unspecified

== ENCOUNTER → 2019-12-16 | Outpatient (CLI) | payer OTHER ==
--- NOTE | 2020-01-16 09:50 | REP ---
CT CHEST WITHOUT CONTRAST: LOW-DOSE SCREENING EXAM HISTORY: Lung cancer screening. COMPARISON: Chest CT study 03/06/2014. There is also a comparison chest CT study from 01/27/2014. CT FINDINGS: Digital preliminary cabbage salter radiograph is unremarkable. The lung rob are clear except for a small calcified granuloma in the left lower lobe, which is unchanged from the 2014 prior studies. No significant pulmonary nodule is appreciated. Exam is otherwise unremarkable. IMPRESSION: Lung-RADS Category 1 findings. Repeat screening study would be indicated in one year. MTDD
== END ==
LOC: M RAD 10:11
PROVIDERS: ATTEND Internal Medicine
DX: F17.210 Nicotine dependence, cigarettes, uncomplicated (principal); Z12.2 Encounter for screening for malignant neoplasm of respiratory organs

== ENCOUNTER → 2020-02-06 | Outpatient (REF) | payer OTHER ==
[2020-02-07 13:49] LABS: HEPATITIS A ANTIBODY IGM NEGATIVE (NEGATIVE); HEPATITIS B CORE ANTIBODY IGM NEGATIVE (NEGATIVE); HEPATITIS B SURFACE ANTIGEN NEGATIVE (NEGATIVE)
== END ==
LOC: M LAB REF 12:01
PROVIDERS: ATTEND Internal Medicine
DX: R74.8 Abnormal levels of other serum enzymes (principal)

== ENCOUNTER → 2020-05-10 | Outpatient (REF) | payer OTHER ==
[~2020-05-10] MED LIST changes: -BUPR150T3 PO; +BUPR150T4 PO
== END ==
LOC: M LAB REF 16:03
PROVIDERS: ATTEND Internal Medicine
DX: M10.9 Gout, unspecified (principal)

== ENCOUNTER → 2020-05-18 | Outpatient (CLI) | payer SELFPAY | LOC: M LABSMTC 10:28 | PROVIDERS: ATTEND Pediatrics | DX: Z20.822 Contact with and (suspected) exposure to COVID-19 (principal) ==

== ENCOUNTER → 2020-08-30 | Outpatient (REF) | payer OTHER ==
[~2020-08-30] MED LIST changes: +BUPR150T12 PO; -BUPR150T4 PO
[2020-08-31 13:57] LABS: HEPATITIS A ANTIBODY IGM NEGATIVE (NEGATIVE); HEPATITIS B CORE ANTIBODY IGM NEGATIVE (NEGATIVE); HEPATITIS B SURFACE ANTIGEN NEGATIVE (NEGATIVE); HEPATITIS C VIRUS ABY INDEX < 0.0 INDEX (<0.8)
== END ==
LOC: M LAB REF 12:13
PROVIDERS: ATTEND Internal Medicine
DX: R74.01 Elevation of levels of liver transaminase levels (principal)

== ENCOUNTER → 2021-02-05 | Outpatient (CLI) | payer OTHER ==
--- NOTE | 2021-02-06 05:02 | REP ---
INDICATION: LUNG CANCER SCREENING COMPARISON: Multiple prior examinations dating through 01/27/2014 TECHNIQUE: Axial noncontrast images from the thoracic inlet to the upper abdomen using low-dose lung screening technique (LDCT). FINDINGS: Bilateral lung rob are relatively symmetric, clear and well aerated. No consolidation, suspicious nodule or mass. No effusion. No pneumothorax. Tracheobronchial tree is patent. The mediastinum is grossly normal/stable. IMPRESSION: Lung-RADS category 1. Management recommendations include annual low-dose CT surveillance for high risk patients. <Electronically signed by Ren Serrano > 02/06/21 045
== END ==
LOC: M RAD 09:54
PROVIDERS: ATTEND Internal Medicine
DX: F17.200 Nicotine dependence, unspecified, uncomplicated (principal)

== ENCOUNTER → 2021-05-01 | Outpatient (REF) | payer OTHER ==
[2021-05-01 11:01] LABS: INR 0.96; PROTHROMBIN TIME 13.2 SECONDS (12.7-14.5)
== END ==
LOC: M LAB REF 10:18
PROVIDERS: ATTEND Internal Medicine
DX: F10.99 Alcohol use, unspecified with unspecified alcohol-induced disorder (principal); R74.01 Elevation of levels of liver transaminase levels

== ENCOUNTER → 2022-03-18 | Outpatient (REF) | payer OTHER ==
[2022-03-18 19:33] LABS: HEPATITIS B SURFACE ANTIGEN NEGATIVE (NEGATIVE)
[2022-03-18 19:55] LABS: HEPATITIS B CORE ANTIBODY IGM NEGATIVE (NEGATIVE)
== END ==
LOC: M LAB REF 16:18
PROVIDERS: ATTEND Internal Medicine
DX: R74.01 Elevation of levels of liver transaminase levels (principal)

== ENCOUNTER → 2022-04-03 | Outpatient (CLI) | payer OTHER | LOC: M WUC 14:06 | PROVIDERS: ATTEND Internal Medicine | DX: R05.9 Cough, unspecified (principal) ==

== ENCOUNTER → 2022-04-29 | Outpatient (CLI) | payer OTHER | LOC: M RAD 08:39 | PROVIDERS: ATTEND Internal Medicine | DX: F17.210 Nicotine dependence, cigarettes, uncomplicated (principal) ==

== ENCOUNTER → 2022-06-16 | Outpatient (REF) | payer OTHER | LOC: M LAB REF 16:35 | PROVIDERS: ATTEND Internal Medicine | DX: E78.00 Pure hypercholesterolemia, unspecified (principal) ==

== ENCOUNTER 2022-07-02 15:15 | Emergency (ER) | payer OTHER ==
[~2022-07-02] VITALS: Ht 175.3 cm; Wt 85.6 kg
[2022-07-02 15:53] VITALS: BP 168/88
[2022-07-02] MEDS ORDERED: IBUPROFEN 600MG TAB PO ONE (17:05)
[2022-07-02] MEDS ORDERED: IBUP-1022 PO (17:14)
[2022-07-02] MEDS ORDERED: CYCL-707 PO (17:14)
== END 2022-07-02 17:37 | disposition home or self-care (01) ==
LOC: M ED 15:15
DX: T14.8XXA Other injury of unspecified body region, initial encounter (principal); S40.012A Contusion of left shoulder, initial encounter; W00.9XXA Unspecified fall due to ice and snow, initial encounter; Y92.89 Other specified places as the place of occurrence of the external cause; Y99.0 Civilian activity done for income or pay; E11.9 Type 2 diabetes mellitus without complications; J44.9 Chronic obstructive pulmonary disease, unspecified; F17.200 Nicotine dependence, unspecified, uncomplicated; Z79.899 Other long term (current) drug therapy; Z79.84 Long term (current) use of oral hypoglycemic drugs

== ENCOUNTER → 2022-10-14 | Outpatient (REF) | payer OTHER ==
[~2022-10-14] MED LIST changes: +CYCL-707 PO; +IBUP-1022 PO
== END ==
LOC: M LAB REF 16:27
PROVIDERS: ATTEND Internal Medicine
DX: M10.9 Gout, unspecified (principal)

== ENCOUNTER → 2022-10-28 | Outpatient (REF) | payer OTHER ==
[2022-10-28 18:06] LABS: URIC ACID 2.1 MG/DL (3.7-9.2)
== END ==
LOC: M LAB REF 16:27
PROVIDERS: ATTEND Internal Medicine
DX: R20.2 Paresthesia of skin (principal); M10.9 Gout, unspecified

== ENCOUNTER → 2023-02-20 | Outpatient (CLI) | payer OTHER ==
[2023-02-20 11:31] LABS: BASO # 0.1 10^3/uL (0.0-0.2); BASO % 1.2 % (0.0-1.0); EOS # 0.3 10^3/uL (0.0-0.5); EOS % 3.9 % (0.0-3.0); HEMATOCRIT 50.5 % (42.0-52.0); HEMOGLOBIN 16.9 g/dl (13.5-17.5); LYMPH # 1.7 10^3/uL (1.5-5.0); LYMPH % 26.2 % (24.0-44.0); MEAN CORPUSCULAR HEMOGLOBIN 31.9 pg (27.0-33.0); MEAN CORPUSCULAR HGB CONC 33.5 g/dl (32.0-36.5); MEAN CORPUSCULAR VOLUME 95.5 fl (80.0-96.0); MONO # 0.7 10^3/uL (0.0-0.8); MONO % 11.5 % (2.0-8.0); NEUTROPHILS # 3.7 10^3/uL (1.5-8.5); PLATELET COUNT, AUTOMATED 198 10^3/uL (150-450); RED BLOOD COUNT 5.29 10^6/uL (4.30-6.10); WHITE BLOOD COUNT 6.4 10^3/uL (4.0-10.0)
[2023-02-20 11:47] LABS: HEMOGLOBIN A1c 7.6 % (4.0-6.0)
[2023-02-20 11:54] LABS: ALBUMIN 4.4 G/DL (3.2-5.2); ALKALINE PHOSPHATASE 68 U/L (46-116); ALT/SGPT 89 U/L (7.0-40); AST/SGOT 97 U/L (<34); BILIRUBIN,TOTAL 0.6 MG/DL (0.3-1.2); BLOOD UREA NITROGEN 11 MG/DL (9-23); CALCIUM LEVEL 9.7 MG/DL (8.5-10.1); CARBON DIOXIDE LEVEL 31 MMOL/L (20-31); CHLORIDE LEVEL 97 MMOL/L (98-107); GLOMERULAR FILTRATION RATE > 60.0 (>56); GLUCOSE, FASTING 224 MG/DL (60-100); POTASSIUM SERUM 4.6 MMOL/L (3.5-5.1); SODIUM LEVEL 135 MMOL/L (136-145); TOTAL PROTEIN 7.9 G/DL (5.7-8.2)
[2023-02-20 11:55] LABS: THYROXINE (T4) 10.5 UG/DL (4.5-10.9)
[2023-02-20 11:56] LABS: FOLATE 10.6 NG/ML (>5.4); FREE THYROXINE INDEX 3.5 % (1.4-3.8); T UPTAKE 33.3 % (22.5-37.0); VITAMIN B12 LEVEL 696 PG/ML (211-911)
== END ==
LOC: M PLALAB 09:53
PROVIDERS: ATTEND Psychiatry & Neurology Neurology
DX: E11.51 Type 2 diabetes mellitus with diabetic peripheral angiopathy without gangrene (principal); E07.9 Disorder of thyroid, unspecified

== ENCOUNTER → 2023-02-24 | Outpatient (REF) | payer OTHER | LOC: M LAB REF 14:34 | PROVIDERS: ATTEND Internal Medicine | DX: M10.9 Gout, unspecified (principal) ==

== ENCOUNTER → 2023-05-29 | Outpatient (CLI) | payer OTHER | LOC: M RAD 12:36 | PROVIDERS: ATTEND Internal Medicine Pulmonary Disease | DX: Z87.891 Personal history of nicotine dependence (principal) ==

== ENCOUNTER → 2023-11-18 | Outpatient (CLI) | payer OTHER ==
[2023-11-18 18:34] LABS: BASO # 0.1 10^3/uL (0.0-0.2); BASO % 0.8 % (0.0-1.0); EOS # 0.3 10^3/uL (0.0-0.5); EOS % 4.3 % (0.0-3.0); LYMPH # 2.5 10^3/uL (1.5-5.0); LYMPH % 31.3 % (24.0-44.0); MEAN CORPUSCULAR HEMOGLOBIN 32.6 pg (27.0-33.0); MEAN CORPUSCULAR HGB CONC 34.8 g/dl (32.0-36.5); MEAN CORPUSCULAR VOLUME 93.7 fl (80.0-96.0); MONO # 0.6 10^3/uL (0.0-0.8); NEUTROPHILS # 4.5 10^3/uL (1.5-8.5); NEUTROPHILS % 55.5 % (36.0-66.0); PLATELET COUNT, AUTOMATED 189 10^3/uL (150-450); RED BLOOD COUNT 4.91 10^6/uL (4.30-6.10)
[2023-11-18 18:46] LABS: ERYTHROCYTE SEDIMENTATION RATE 14 mm/hr (0-20)
[2023-11-18 19:00] LABS: ALKALINE PHOSPHATASE 77 U/L (46-116); ALT/SGPT 100 U/L (7.0-40); AST/SGOT 107 U/L (<34); BILIRUBIN,TOTAL 0.5 MG/DL (0.3-1.2); BLOOD UREA NITROGEN 10 MG/DL (9-23); CALCIUM LEVEL 8.9 MG/DL (8.3-10.6); CARBON DIOXIDE LEVEL 26 MMOL/L (20-31); CHLORIDE LEVEL 95 MMOL/L (98-107); CREATININE FOR GFR 0.96 MG/DL (0.70-1.30); GLOMERULAR FILTRATION RATE > 60.0 (>49); GLUCOSE, FASTING 169 MG/DL (74-106); POTASSIUM SERUM 3.8 MMOL/L (3.5-5.1); RHEUMATOID FACTOR QUANT 26.8 IU/ML (<14); SODIUM LEVEL 130 MMOL/L (136-145); TOTAL PROTEIN 7.2 G/DL (5.7-8.2)
[2023-11-18 19:01] LABS: THYROID STIMULATING HORMONE 1.972 uIU/ML (0.55-4.78); THYROXINE (T4) 8.3 UG/DL (4.5-10.9)
[2023-11-18 19:02] LABS: FOLATE 7.2 NG/ML (>5.4); T UPTAKE 35.6 % (22.5-37.0); VITAMIN B12 LEVEL 622 PG/ML (211-911)
[2023-11-18 19:06] LABS: HEMOGLOBIN A1c 8.9 % (4.0-6.0)
== END ==
LOC: M PLALAB 16:13
PROVIDERS: ATTEND Psychiatry & Neurology Neurology
DX: E53.8 Deficiency of other specified B group vitamins (principal)

== ENCOUNTER → 2023-11-24 | Outpatient (REF) | payer OTHER | LOC: M LAB 11:19 | PROVIDERS: ATTEND Psychiatry & Neurology Neurology | DX: E53.8 Deficiency of other specified B group vitamins (principal); E07.9 Disorder of thyroid, unspecified ==

== ENCOUNTER → 2023-12-08 | Outpatient (REF) | LOC: M PLAIMG 08:54 | PROVIDERS: ATTEND Internal Medicine | DX: R52 Pain, unspecified (principal) ==

== ENCOUNTER → 2023-12-23 | Outpatient (REF) | payer OTHER ==
[2023-12-23 17:07] LABS: C REACTIVE PROTEIN QUANTITATIV < 0.40 MG/DL (<1.0)
[2023-12-23 17:08] LABS: IRON (FE) 74 UG/DL (65-175)
[2023-12-23 17:09] LABS: PERCENT SATURATION 20.1 % (19.7-50.0); RHEUMATOID FACTOR QUANT 31.9 IU/ML (<14); TOTAL IRON BINDING CAPACITY 369 UG/DL (250-425)
[2023-12-23 17:12] LABS: FERRITIN 256.7 NG/ML (10.5-307.3)
== END ==
LOC: M LAB REF 16:33
PROVIDERS: ATTEND Internal Medicine
DX: G62.9 Polyneuropathy, unspecified (principal); K76.0 Fatty (change of) liver, not elsewhere classified

== ENCOUNTER → 2024-05-04 | Outpatient (REF) | payer OTHER | LOC: M LAB REF 16:18 | PROVIDERS: ATTEND Internal Medicine | DX: R25.1 Tremor, unspecified (principal); G56.03 Carpal tunnel syndrome, bilateral upper limbs ==

== ENCOUNTER → 2024-06-22 | Outpatient (CLI) | payer OTHER | LOC: M RAD 10:23 | PROVIDERS: ATTEND Internal Medicine | DX: R74.01 Elevation of levels of liver transaminase levels (principal) ==

== ENCOUNTER → 2024-07-07 | Outpatient (CLI) | payer OTHER | LOC: M RAD 15:34 | PROVIDERS: ATTEND Internal Medicine | DX: F17.210 Nicotine dependence, cigarettes, uncomplicated (principal) ==

== ENCOUNTER 2024-07-13 06:59 | Day surgery (SDC) | payer OTHER ==
[~2024-07-13] VITALS: Ht 174 cm; Wt 88.0 kg
[2024-07-13] MEDS ORDERED: INSU100I59 (07:33)
[2024-07-13] MEDS ORDERED: DAPA10TA5 (07:33)
[2024-07-13] MEDS ORDERED: METO1TAB33 (07:33)
[2024-07-13] MEDS ORDERED: LIDOCAINE 2% 100MG/5ML SDV (FOR ANES.) As Ordered ONE (07:56)
[2024-07-13] MEDS ORDERED: propofoL 200 MG/20 ML VIAL As Ordered ONE (07:56)
[2024-07-13] MEDS ORDERED: METOPROLOL 5 MG/5 ML VIAL As Ordered ONE (08:02)
[2024-07-13 08:11] VITALS: TEMP 97.5
[2024-07-13] MEDS: INSULIN LISPRO (NovoLOG) PER UNIT SC PRN (08:18)
[2024-07-13 08:35] VITALS: BP 164/86; O2SAT 94
== END 2024-07-13 08:44 | disposition home or self-care (01) ==
LOC: M OPP 06:59
PROVIDERS: ATTEND Surgery
DX: D12.2 Benign neoplasm of ascending colon (principal); K57.30 Diverticulosis of large intestine without perforation or abscess without bleeding; K64.0 First degree hemorrhoids; Z86.0100 Personal history of colon polyps, unspecified; K44.9 Diaphragmatic hernia without obstruction or gangrene; K22.89 Other specified disease of esophagus; K29.70 Gastritis, unspecified, without bleeding; R13.10 Dysphagia, unspecified; K22.70 Barrett's esophagus without dysplasia; G47.30 Sleep apnea, unspecified; Z79.899 Other long term (current) drug therapy; J44.9 Chronic obstructive pulmonary disease, unspecified; F17.210 Nicotine dependence, cigarettes, uncomplicated
CPT/HCPCS: 43239; 45385; 88305; J1815

== ENCOUNTER → 2024-08-04 | Outpatient (REF) | payer OTHER ==
[~2024-08-04] MED LIST changes: +DAPA10TA5; +INSU100I59; +METO1TAB33
== END ==
LOC: M LAB REF 18:02
PROVIDERS: ATTEND Internal Medicine
DX: E78.00 Pure hypercholesterolemia, unspecified (principal)

== ENCOUNTER → 2025-03-22 | Outpatient (CLI) | payer OTHER ==
[~2025-03-22] MED LIST changes: -IBUP-1022 PO; +IBUP600T42 PO
== END ==
LOC: M OUTALCOH 08:36
PROVIDERS: ATTEND Psychiatry & Neurology Psychiatry
DX: F10.20 Alcohol dependence, uncomplicated (principal); F17.200 Nicotine dependence, unspecified, uncomplicated

== ENCOUNTER → 2025-03-28 | Outpatient (CLI) | payer OTHER | LOC: M OUTALCOH 07:33 | PROVIDERS: ATTEND Psychiatry & Neurology Psychiatry | DX: F10.20 Alcohol dependence, uncomplicated (principal); F17.200 Nicotine dependence, unspecified, uncomplicated ==

== ENCOUNTER 2025-04-10 09:48 | Outpatient (RCR) | payer OTHER | END 2025-04-19 | LOC: M OUTALCOH 09:48 | PROVIDERS: ATTEND Psychiatry & Neurology Psychiatry | DX: F10.20 Alcohol dependence, uncomplicated (principal); F17.200 Nicotine dependence, unspecified, uncomplicated ==